=== PATIENT | female | born 1995 | race Caucasian/White ===

== ENCOUNTER 2017-09-26 12:06 | Emergency (ER) | payer MEDICAID ==
[2017-09-26] MEDS: SOD CHLORIDE 0.9% 1,000 ML IV (12:44)
[2017-09-26] MEDS: ONDANSETRON 4 MG INJ IV (12:44)
[2017-09-26] MEDS: morphine 4 MG/ML VIAL IV (12:45)
[2017-09-26 13:01] LABS: ADD MAN DIFF? NO
[2017-09-26 13:05] LABS: BASOPHILS % 0.5 % (0.0-2.0); EOSINOPHILS # 0.2 10^3/ul (0.0-0.5); EOSINOPHILS % 2.3 % (0.0-7.0); HEMOGLOBIN 12.4 g/dl (12.0-16.0); LYMPHOCYTES % 24.9 % (15.0-51.0); MEAN CORPUSCULAR HEMOGLOBIN 31.5 pg (29.0-33.0); MEAN CORPUSCULAR HGB CONC 33.5 g/dl (32.0-37.0); MEAN CORPUSCULAR VOLUME 93.9 fl (82.0-101.0); MEAN PLATELET VOLUME 10.8 fl (7.4-10.4); MONOCYTE # 0.8 10^3/ul (0.3-0.9); MONOCYTES % 9.5 % (0.0-11.0); NEUTROPHIL # 5.1 10^3/ul (1.6-7.5); NEUTROPHILS % 62.6 % (39.0-77.0); PLATELET COUNT 286 10^3/UL (140-415); RED BLOOD COUNT 3.94 10^6/ul (4.20-5.40); RED CELL DISTRIBUTION WIDTH 12.1 % (11.5-14.5)
[2017-09-26 13:05] LABS: WHITE BLOOD COUNT 8.1 10^3/ul (4.8-10.8)
[2017-09-26 14:22] LABS: ADD UMIC YES; UR ASCORBIC ACID 20 mg/dL (NEGATIVE); UR BACTERIA FEW /HPF (NONE SEEN); UR BILIRUBIN (Dip) NEGATIVE (NEGATIVE); UR BLOOD (Dip) 3+ mg/dL (NEGATIVE); UR CLARITY CLOUDY (CLEAR); UR COLOR RED (YELLOW); UR GLUCOSE (Dip) NEGATIVE (NEGATIVE); UR KETONES (Dip) NEGATIVE (NEGATIVE); UR LEUKOCYTE ESTERASE (Dip) TRACE Leu/ul (NEGATIVE); UR NITRITE (Dip) NEGATIVE (NEGATIVE); UR RBC > 182 /HPF (0-5); UR SPECIFIC GRAVITY (Dip) 1.017 (1.003-1.030); UR SQUAMOUS EPITHELIAL CELL FEW /HPF (FEW); UR TOTAL PROTEIN (Dip) 2+ mg/dl (NEGATIVE); UR UROBILINOGEN (Dip) NEGATIVE (NEGATIVE); UR WBC > 182 /HPF (0-5)
== END 2017-09-26 16:16 | disposition home or self-care (01) ==
LOC: FTE 12:06
DX: O03.9 Complete or unspecified spontaneous abortion without complication (principal); R10.2 Pelvic and perineal pain
CPT/HCPCS: 36415; 76801; 81001; 84702; 85025; 86900; 86901; 96361; 96374; 96375; 99285-25

== ENCOUNTER 2017-09-28 05:27 | Day surgery (SDC) | payer MEDICAID ==
[2017-09-28 06:23] LABS: ADD MAN DIFF? NO
[2017-09-28 06:26] LABS: WHITE BLOOD COUNT 5.9 10^3/ul (4.8-10.8)
[2017-09-28 06:26] LABS: BASOPHILS % 0.3 % (0.0-2.0); EOSINOPHILS % 0.2 % (0.0-7.0); HEMATOCRIT 36.5 % (37.0-47.0); HEMOGLOBIN 12.4 g/dl (12.0-16.0); LYMPHOCYTES # 1.9 10^3/ul (0.8-2.9); LYMPHOCYTES % 31.4 % (15.0-51.0); MEAN CORPUSCULAR HEMOGLOBIN 31.5 pg (29.0-33.0); MEAN CORPUSCULAR VOLUME 92.6 fl (82.0-101.0); MONOCYTE # 0.5 10^3/ul (0.3-0.9); MONOCYTES % 7.8 % (0.0-11.0); NEUTROPHIL # 3.5 10^3/ul (1.6-7.5); PLATELET COUNT 293 10^3/UL (140-415); RED BLOOD COUNT 3.94 10^6/ul (4.20-5.40); RED CELL DISTRIBUTION WIDTH 12.1 % (11.5-14.5)
[2017-09-28] MEDS ORDERED: SUCCINYLCHOLINE CHLORIDE 100 MG/5 ML SYG IV (07:00)
[2017-09-28 07:12] LABS: UR BACTERIA FEW /HPF (NONE SEEN); UR MUCUS MANY /HPF (NONE SEEN); UR RBC > 182 /HPF (0-5); UR SQUAMOUS EPITHELIAL CELL FEW /HPF (FEW); UR WBC 3 /HPF (0-5)
[2017-09-28] MEDS ORDERED: GLYCOPYRROLATE 0.4 MG INJ (07:21)
[2017-09-28] MEDS ORDERED: FENTAnyl 50 MCG/ML VIAL (07:21)
[2017-09-28] MEDS ORDERED: MIDAZOLAM 1 MG/ML 2 ML INJ (07:21)
[2017-09-28] MEDS ORDERED: ROCURONIUM 50 MG INJ (07:21)
[2017-09-28] MEDS ORDERED: NEOSTIGMINE 3 MG/3 ML SYRINGE (07:21)
[2017-09-28] MEDS ORDERED: CEFAZOLIN 1 GM INJ (07:21)
[2017-09-28] MEDS ORDERED: PROPOFOL 20 ML (07:21)
[2017-09-28] MEDS ORDERED: DEXAMETHASONE 4 MG/ML 1 ML INJ (07:22)
[2017-09-28] MEDS ORDERED: ONDANSETRON 4 MG INJ (07:22)
[2017-09-28 07:51] LABS: ADD UMIC YES; UR CLARITY SLIGHTLY CLOUDY (CLEAR); UR COLOR YELLOW (YELLOW); URINE PH (Dip) 5.5 (5.0-9.0); URINE SPECIFIC GRAVITY (Dip) >1.030 (1.003-1.030)
[2017-09-28 07:52] LABS: UR BILIRUBIN (Dip) 2+ mg/dL (NEGATIVE); UR BLOOD (Dip) 3+ mg/dL (NEGATIVE); UR GLUCOSE (Dip) NEGATIVE (NEGATIVE); UR KETONES (Dip) 1+ mg/dL (NEGATIVE); UR LEUKOCYTE ESTERASE (Dip) NEGATIVE Leu/ul (NEGATIVE); UR NITRITE (Dip) NEGATIVE (NEGATIVE); UR TOTAL PROTEIN (Dip) 2+ mg/dl (NEGATIVE); UR UROBILINOGEN (Dip) 0.2 E.U./dL mg/dL (NEGATIVE)
[2017-09-28] MEDS ORDERED: KETOROLAC 30 MG INJ (08:08)
[2017-09-28] MEDS ORDERED: OXYTOCIN 10 UNIT INJ (08:16)
[2017-09-28] MEDS ORDERED: MEPERIDINE 25 MG INJ IV (08:30)
[2017-09-28] MEDS ORDERED: FENTAnyl 50 MCG/ML VIAL IV ×3 (08:30)
[2017-09-28] MEDS ORDERED: hydrALAzine 20 MG INJ IV (08:30)
[2017-09-28] MEDS ORDERED: OXYCODONE/ACETAMINOPHEN (5/325) TAB PO ×2 (08:30)
[2017-09-28] MEDS ORDERED: MIDAZOLAM 1 MG/ML 2 ML INJ IV (08:30)
[2017-09-28] MEDS ORDERED: IPRATROPIUM (NEB) 0.5 MG/2.5 ML AMP HHN (08:30)
[2017-09-28] MEDS ORDERED: EPHEDrine SULFATE 50 MG/5 ML SYG IV (08:30)
[2017-09-28] MEDS ORDERED: LABETALOL HCL 20MG INJ IV (08:30)
[2017-09-28] MEDS ORDERED: ALBUTEROL 0.083% (NEB) 2.5 MG/3 ML AMP HHN (08:30)
[2017-09-28] MEDS ORDERED: TRIMETHOBENZAMIDE 100 MG/ML VIAL IM (08:30)
[2017-09-28] MEDS ORDERED: IBUPROFEN 600 MG TAB PO (08:30)
[2017-09-28] MEDS ORDERED: HYDROmorphONE 1 MG/5 ML IV SYRINGE IV ×3 (08:30)
[2017-09-28] MEDS ORDERED: KETOROLAC 30 MG INJ IV (08:30)
[2017-09-28] MEDS ORDERED: DIPHENHYDRAMINE 50 MG INJ IV (08:30)
[2017-09-28] MEDS: ONDANSETRON 4 MG INJ IV (09:22)
== END 2017-09-28 11:28 | disposition home or self-care (01) ==
LOC: SDS 05:27
DX: O03.4 Incomplete spontaneous abortion without complication (principal)
CPT/HCPCS: 59812; 81001; 85025; 86850; 86900; 86901; 88305